=== PATIENT | female | born 1990 | race Caucasian/White ===

== ENCOUNTER 2016-11-10 19:58 | Emergency (ER) | payer SELFPAY ==
[~2016-11-10] VITALS: Ht 170.2 cm; Wt 118.0 kg
[2016-11-10 21:39] LABS: CLARITY URINE CLOUDY (CLEAR); COLOR URINE YELLOW (YELLOW); GLUCOSE URINE NEGATIVE (NEGATIVE); KETONES URINE NEGATIVE (NEGATIVE); LEUKOCYTE ESTERASE URINE 2+ (NEGATIVE); NITRITE URINE NEGATIVE (NEGATIVE); OCCULT BLOOD URINE 2+ (NEGATIVE); PROTEIN URINE 1+ (NEGATIVE); SPECIFIC GRAVITY URINE 1.029 (1.005-1.030)
[2016-11-11] MEDS ORDERED: PHENAZOPYRIDINE HCL 200MG TABLET PO ONE (00:15)
[2016-11-11] MEDS ORDERED: NITROFURANTOIN 100MG M/M CAPSULE PO ONE (00:15)
[2016-11-11 00:43] VITALS: BP 135/67
== END 2016-11-11 00:51 | disposition home or self-care (01) ==
LOC: ER 19:58
DX: N39.0 Urinary tract infection, site not specified (principal); Z98.84 Bariatric surgery status
CPT/HCPCS: 81001; 81025; 99283; Z7610

== ENCOUNTER 2020-10-14 10:48 | Emergency (ER) | payer MEDICAID ==
[~2020-10-14] VITALS: Ht 170.2 cm; Wt 145.0 kg
[2020-10-14 12:07] LABS: CLARITY URINE TURBID (CLEAR); COLOR URINE DARK YELLOW (YELLOW); KETONES URINE TRACE (NEGATIVE); LEUKOCYTE ESTERASE URINE 3+ (NEGATIVE); NITRITE URINE NEGATIVE (NEGATIVE); OCCULT BLOOD URINE 3+ (NEGATIVE); PROTEIN URINE 2+ (NEGATIVE); SPECIFIC GRAVITY URINE 1.025 (1.005-1.030)
[2020-10-14] MEDS ORDERED: CEFP200T13 MT (13:06)
[2020-10-14 13:40] VITALS: BP 137/88
== END 2020-10-14 13:42 | disposition home or self-care (01) ==
LOC: ER 11:38
DX: N39.0 Urinary tract infection, site not specified (principal); Z98.890 Other specified postprocedural states
CPT/HCPCS: 81003; 87077; 87186; 99283

== ENCOUNTER 2023-04-16 10:00 | Emergency (ER) | payer MEDICAID ==
[~2023-04-16] VITALS: Ht 170.2 cm; Wt 100.0 kg
[~2023-04-16 10:00] MED LIST: CEFP200T13 MT
[2023-04-16 10:11] VITALS: O2SAT 100
[2023-04-16] MEDS: SODIUM CHLORIDE 0.9% 1,000 ML IV ONE ×2 (10:43→12:07)
[2023-04-16] MEDS: ONDANSETRON HCL 4MG/2ML INJ IV STA (10:43)
[2023-04-16 11:00] LABS: BASOPHILS % 0.5 % (0.0-2.0); EOSINOPHILS % 0.1 % (0.0-5.0); HEMATOCRIT. 39.4 % (36.0-48.0); HEMOGLOBIN. 13.4 g/dL (12.0-16.0); LYMPHOCYTES % 18.5 % (20.0-50.0); MEAN CORPUSCULAR HEMOGLOBIN 30.3 pg (28.0-32.0); MEAN CORPUSCULAR VOLUME 89.2 fL (81.0-99.0); MEAN PLATELET VOLUME 8.4 fl (7.4-10.4); MONOCYTES % 3.7 % (2.0-8.0); NEUTROPHILS % 77.2 % (40.0-76.0); PLATELET 281 x1000/uL (130-400); RED BLOOD CELL COUNT 4.41 mill/uL (4.2-5.4); RED CELL DISTRIBUTION WIDTH 13.8 % (11.6-14.6); WHITE BLOOD COUNT 5.9 x1000/uL (4.5-11.0)
[2023-04-16 11:18] LABS: ALANINE AMINOTRANSFERASE 17 IU/L (10-49); ALBUMIN 4.8 g/dL (3.2-4.8); ASPARTATE AMINOTRANSFERASE 22 IU/L (<34); CALCIUM 9.1 mg/dL (8.7-10.4); CARBON DIOXIDE 27 mEq/L (21-32); CHLORIDE 106 mEq/L (98-107); CREATININE 0.7 mg/dL (0.6-1.0); GLUCOSE 102 mg/dL (70-105); POTASSIUM 3.7 mEq/L (3.5-5.1); SODIUM 142 mEq/L (136-145); UREA NITROGEN BLOOD 15 mg/dL (9-23)
[2023-04-16 11:20] LABS: TROPONIN I HIGH SENSITIVITY < 4 ng/L (3.0-34)
[2023-04-16 11:28] LABS: HCG SCREEN NEGATIVE
[2023-04-16] MEDS: KETOROLAC 15MG/ML VIAL IV ONE (11:55)
[2023-04-16] MEDS ORDERED: FAMOTIDINE 20MG/2ML VIAL IV SCH (12:00)
[2023-04-16] MEDS ORDERED: FAMOTIDINE 20MG/2ML VIAL IV NR (12:00)
[2023-04-16] MEDS: MAGNESIUM/ALUMINUM HYDROXIDE/SIMETHICONE 30ML UDC PO STA (12:07)
[2023-04-16] MEDS: METOCLOPRAMIDE HCL 10MG/2ML VIAL IV ONE (12:07)
[2023-04-16] MEDS ORDERED: FAMO-135 MT (12:48)
[2023-04-16 12:57] VITALS: BP 125/84; PULSE 79; RESP 18; TEMP 97.7
== END 2023-04-16 13:35 | disposition home or self-care (01) ==
LOC: ER 10:00
DX: A08.4 Viral intestinal infection, unspecified (principal); I49.9 Cardiac arrhythmia, unspecified
CPT/HCPCS: 80053; 84703; 85025; 84484; 36415; 71045; 93005; 96374; 96375; 99285; J1885; J2765; J2405; J7030; Z7610 ×3